=== PATIENT | female | born 1990 | race Caucasian/White ===

== ENCOUNTER → 2022-01-17 10:50 | Outpatient (BNVA) | payer OTHER, SELFPAY | PROVIDERS: Visit Provider Physician Assistant | DX: M23.91 Unspecified internal derangement of right knee (principal) | CPT/HCPCS: 73564; 99203 ==

== ENCOUNTER → 2022-01-20 08:08 | Outpatient (BNVA) | payer OTHER, SELFPAY | PROVIDERS: Visit Provider Physician Assistant Medical | DX: M23.91 Unspecified internal derangement of right knee (principal) | CPT/HCPCS: 99213 ==

== ENCOUNTER → 2022-01-27 08:00 | Outpatient (BNVA) | payer OTHER, SELFPAY | PROVIDERS: Visit Provider Physician Assistant Medical | DX: M23.91 Unspecified internal derangement of right knee (principal) | CPT/HCPCS: 99213 ==

== ENCOUNTER 2022-01-28 18:46 | Outpatient (REF) | payer OTHER, SELFPAY ==
--- NOTE | ~2022-01-28 | MR_ITS ---
EXAMINATION: MR KNEE WITHOUT CONTRAST, RIGHT CLINICAL INFORMATION: Posterior right knee pain following a jumping injury on 01/17/2022. Tear versus sprain. Laxity. Weakness with weightbearing. COMPARISON: Right knee radiographs dated 01/17/2022. TECHNIQUE: MRI of the knee without contrast was performed using routine sequences on a high-field scanner. FINDINGS: MENISCI: Medial Meniscus: Edema along the periphery of the posterior meniscal body and posterior horn which could represent a nondisplaced meniscocapsular injury. No articular surface meniscal tear. Lateral Meniscus: Intact LIGAMENTS: Cruciate: Complete tear of the anterior cruciate ligament with adjacent soft tissue edema. Intact posterior cruciate ligament. Collateral: Minimal edema adjacent to the medial collateral ligament consistent with a grade 1 sprain. Intact fibular collateral ligament. EXTENSOR MECHANISM: Intact ARTICULAR CARTILAGE/BONE: Patellofemoral Compartment: Intact articular cartilage. Marrow edema at the inferior pole of the patella consistent with an osseous contusion. Medial Compartment: Intact articular cartilage. Cortical depression with underlying marrow edema at the posterior aspect of the medial tibial plateau consistent with an impaction fracture. Lateral Compartment: Intact articular cartilage. Cortical depression with underlying marrow edema at the sulcus terminalis and posterior lateral tibial plateau, consistent with impaction fractures. JOINT FLUID AND BURSAE: [id number] joint effusion. Trace Vides's cyst with dependent loose bodies versus debris measuring up to 1.5 cm in craniocaudal dimension. MR/MR knee RT wo con IMPRESSION: 1. Complete tear of the anterior cruciate ligament. 2. Probable grade 1 sprain of the medial collateral ligament. 3. Edema along the periphery of the medial meniscal body and posterior horn which could represent a nondisplaced meniscocapsular injury. No articular surface meniscal tear. 4. Minimally depressed impaction fractures at the sulcus terminalis as well as at the posterior aspect the medial and lateral tibial plateau. [id number] joint effusion. Trace Vides's cyst with loose bodies versus debris measuring up to 1.5 cm.
== END 2022-01-28 18:47 | disposition home or self-care (01) ==
LOC: HO.MRI 18:46
PROVIDERS: Visit Provider Internal Medicine
DX: M25.561 Pain in right knee (principal)
CPT/HCPCS: 73721

== ENCOUNTER → 2022-02-03 09:04 | Outpatient (BNVA) | payer OTHER, SELFPAY | PROVIDERS: Visit Provider Physician Assistant Medical | DX: M23.91 Unspecified internal derangement of right knee (principal); S83.511A Sprain of anterior cruciate ligament of right knee, initial encounter; X58.XXXA Exposure to other specified factors, initial encounter | CPT/HCPCS: 99213 ==